=== PATIENT | male | born 1995 | race American Indian/Alaskan Native ===

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

== ENCOUNTER 2017-09-12 12:30 | Emergency (ER) | payer BC ==
[2017-09-12 12:30] VITALS: BMI 38.7
[2017-09-12] MEDS ORDERED: Sodium Chloride 0.9% 1,000 ML IV ONE (13:31)
--- NOTE | 2017-09-12 13:31 | C.PDOC ---
History Of Present Illness 22 Y/O MALE PRESENTS TO ED FOR EVALUATION OF POSSIBLE RECUR GERD EPIG PAIN X 4 DAYS. PS DX GERD, POSSIBLE PUD 2017 @ [facility] [place]. DENIES PRIOR ENDOSCOPY. WAS PREVIOUSLY ON "GI MEDS" BUT ADVISED TO STOP LAST YEAR. PATIENT STATES CURRENT PAIN SIM TO PRIOR BUT MORE INTENSE. LOCALIZED WAX WANE WORSE W SPICY AND FRIED FOODS. +NV. PSH NEG. DENIES OTHER ASSOC SX EXAM MILD DIST NONTOXIC HEENT MMM ANICTERIC ABD +EPIG TEND OBESE SOFT NO R/G REMAINDER NEG Time Seen by Provider: 09/12/17 13:03 Chief Complaint (Nursing): Abdominal Pain History Per: Patient History/Exam Limitations: no limitations Onset/Duration Of Symptoms: Days Current Symptoms Are (Timing): Still Present Context: Food Location Of Pain/Discomfort: Epigastric Radiation Of Pain To:: None Past Medical History Reviewed: Historical Data, Nursing Documentation, Vital Signs Vital Signs: Last Vital Signs Temp 100.7 F H 09/12/17 18:28 Pulse 101 H 09/12/17 18:28 Resp 18 09/12/17 18:28 BP 106/69 09/12/17 18:28 Pulse Ox 98 09/12/17 18:28 - Medical History PMH: No Chronic Diseases Surgical History: No Surg Hx Family History: States: No Known Family Hx - Social History Hx Tobacco Use: No Hx Alcohol Use: No Hx Substance Use: No - Immunization History Hx Tetanus Toxoid Vaccination: Yes Hx Influenza Vaccination: No Hx Pneumococcal Vaccination: No Review Of Systems Constitutional: Negative for: Fever, Chills Gastrointestinal: Positive for: Nausea, Vomiting, Abdominal Pain. Negative for : Diarrhea Genitourinary: Negative for: Dysuria Musculoskeletal: Negative for: Back Pain Skin: Negative for: Rash Physical Exam - Physical Exam Appears: Non-toxic, Other (In mild distress) Skin: Warm, Dry, No Rash Head: Atraumatic, Normacephalic Eye(s): bilateral: Normal Inspection Oral Mucosa: Moist Neck: Normal ROM, Supple Cardiovascular: Rhythm Regular Respiratory: Normal Breath Sounds, No Rales, No Rhonchi, No Wheezing Gastrointestinal/Abdominal: Soft, Tenderness (Epigastric), No Guarding, No Rebound, Other (Obese ) Back: No CVA Tenderness, No Paraspinal Tenderness Neurological/Psych: Oriented x3, Normal Speech, Normal Cognition ED Course And Treatment - Laboratory Results Result Diagrams: 09/12/17 18:29 09/12/17 13:54 O2 Sat by Pulse Oximetry: 99 (RA) Pulse Ox Interpretation: Normal Progress - Re-Evaluation Re-evaluation Note: 09/12/17 15:17 PS FEELS BETTER. APPEARS IMPROVED FROM PRIOR. TOLERATING PO WO DIFF 09/12/17 15:30 +FEVER. PS FELT "HOT AND CHILLS" THIS WEEK, NO MEASURED TEMP. CXR NEG. WILL CT 09/12/17 18:54 CBC IMPROVED. CO NEW ONSET DIARRHEA. APPEARS COMFORTABLE NONTOXIC - Data Reviewed Data Reviewed: Lab, Diagnostic imaging, Old records Disposition Counseled Patient/Family Regarding: Studies Performed, Diagnosis, Need For Followup, Rx Given - Disposition Referrals: YOUR,PMD [Other] Disposition: HOME/ ROUTINE Disposition Time: 18:54 Condition: IMPROVED Prescriptions: Famotidine [Pepcid AC] 10 mg PO QN #30 tablet Omeprazole Magnesium [Prilosec Otc] 20 mg PO QN #30 tablet. Sucralfate [Carafate] 1 gm PO QID #12 tab Instructions: Acute Abdomen (Belly Pain), Adult (DC), Viral Gastroenteritis, Adult (DC) Forms: [employer] (Indonesian) - Clinical Impression Clinical Impression: Abdominal pain, Diarrhea - Scribe Statement The provider has reviewed the documentation as recorded by the Sheebaibkong Stokes All medical record entries made by the Sheebaibkong were at my direction and personally dictated by me. I have reviewed the chart and agree that the record accurately reflects my personal performance of the history, physical exam, medical decision making, and the department course for this patient. I have also personally directed, reviewed, and agree with the discharge instructions and disposition.
[2017-09-12] MEDS ORDERED: Belladonna-Phenobarbital PO STA (13:32)
[2017-09-12] MEDS ORDERED: Sodium Chloride 0.9% 1,000 ML ONE (13:39)
[2017-09-12] MEDS ORDERED: Belladonna-Phenobarbital ONE (13:40)
[2017-09-12 14:01] LABS: BASO % 0.1 % (0.0-2.0); EOS % 0.7 % (0.0-4.0); HEMOGLOBIN 14.3 g/dL (12.0-18.0); LYMPH # 0.5 K/uL (1.0-4.3); LYMPH % 8.3 % (20.0-40.0); MEAN CELL VOLUME 85.7 fL (80.0-94.0); MEAN CORPUSCULAR HEMOGLOBIN 29.3 pg (27.0-31.0); MEAN CORPUSCULAR HGB CONC 34.3 g/dL (33.0-37.0); MEAN PLATELET VOLUME 8.7 fL (7.2-11.7); MONO # 0.8 K/uL (0.0-0.8); NEUT # 5.1 K/uL (1.8-7.0); NEUT % 78.9 % (50.0-75.0); NRBC % 0.1 % (0.0-2.0); PLATELET COUNT 209 K/uL (130-400); RBC 4.87 Mil/uL (4.40-5.90); RED CELL DISTRIBUTION WIDTH 14.2 % (11.5-14.5); WHITE BLOOD COUNT 6.4 K/uL (4.8-10.8)
[2017-09-12 14:16] LABS: ALBUMIN 4.6 g/dL (3.5-5.0); ALT/SGPT 14 U/L (21-72); AST/SGOT 46 U/L (17-59); BLOOD UREA NITROGEN 10 mg/dL (9-20); CALCIUM 9.7 mg/dl (8.6-10.4); GFR AFRICAN-AMERICAN > 60; GFR NON-AFRICAN AMERICAN > 60; LIPASE 75 U/L (23-300)
--- NOTE | 2017-09-12 14:23 | US ---
HISTORY: abd pain COMPARISON: None. TECHNIQUE: Sonographic evaluation of the right upper quadrant of the abdomen. FINDINGS: LIVER: Measures 15.8 cm in length. Normal echogenicity of the liver parenchyma. No mass. No intrahepatic bile duct dilatation. GALLBLADDER: Unremarkable. No gallstones. COMMON BILE DUCT: Measures 4 mm. No stones. No dilatation. PANCREAS: Not well-visualized RIGHT KIDNEY: Measures 10.8 x 4.7 x 4.9 cm in length. Normal echogenicity. No calculus, mass, or hydronephrosis. AORTA: No aneurysmal dilatation. IVC: Unremarkable. OTHER FINDINGS: None . IMPRESSION: Unremarkable right upper quadrant ultrasound.
[2017-09-12 14:37] LABS: BANDS 8 % (0-2); BASOPHIL 1 % (0-2); LYMPHOCYTE 8 % (20-40); MONOCYTE 9 % (0-10); NEUTROPHIL 72 % (50-75); REACTIVE LYMPHOCYTES 2 % (0-0); TOTAL CELLS COUNTED 100
[2017-09-12 14:38] LABS: PLATELET ESTIMATE NORMAL (NORMAL)
[2017-09-12 14:58] LABS: SQUAMOUS EPITHIAL < 1 /hpf (0-5); URINE BILIRUBIN NEGATIVE (NEGATIVE); URINE BLOOD NEGATIVE (NEGATIVE); URINE CLARITY Clear (Clear); URINE COLOR Yellow (YELLOW); URINE GLUCOSE (UA) NORMAL (Normal); URINE LEUKOCYTE ESTERASE NEG Leu/uL (Negative); URINE PROTEIN NEGATIVE (NEGATIVE); URINE UROBILINOGEN NORMAL mg/dL (0.2-1.0)
[2017-09-12] MEDS ORDERED: Iohexol 300 100 ML IJ ONE (17:22)
--- NOTE | 2017-09-12 18:05 | CT ---
PROCEDURE: CT Abdomen and Pelvis with contrast HISTORY: ABD PAIN FEVER COMPARISON: None. TECHNIQUE: Contrast dose: 100 mL Omnipaque 300 Radiation dose: Total exam DLP = 1300.2 mGy-cm. This CT exam was performed using one or more of the following dose reduction techniques: Automated exposure control, adjustment of the mA and/or kV according to patient size, and/or use of iterative reconstruction technique. FINDINGS: LOWER THORAX: Unremarkable. LIVER: Unremarkable. No gross lesion or ductal dilatation. GALLBLADDER AND BILE DUCTS: Unremarkable. PANCREAS: Unremarkable. No gross lesion or ductal dilatation. SPLEEN: Unremarkable. ADRENALS: Unremarkable. No mass. KIDNEYS AND URETERS: Unremarkable. No hydronephrosis. No solid mass. VASCULATURE: Unremarkable. No aortic aneurysm. BOWEL: Unremarkable. No obstruction. No gross mural thickening. APPENDIX: Normal appendix. PERITONEUM: Fat containing umbilical hernia. No free fluid. No free air. LYMPH NODES: Unremarkable. No enlarged lymph nodes. BLADDER: Unremarkable. REPRODUCTIVE: Unremarkable. BONES: No acute fracture. OTHER FINDINGS: None. IMPRESSION: Unremarkable contrast enhanced CT of the abdomen and pelvis.
[2017-09-12 18:29] VITALS: BP 106/69; PULSE 101; RESP 18; TEMP 100.7
[2017-09-12 18:34] LABS: BASO % 0.2 % (0.0-2.0); EOS % 0.4 % (0.0-4.0); HEMOGLOBIN 13.2 g/dL (12.0-18.0); LYMPH # 0.6 K/uL (1.0-4.3); LYMPH % 12.8 % (20.0-40.0); MEAN CELL VOLUME 85.2 fL (80.0-94.0); MEAN CORPUSCULAR HEMOGLOBIN 28.9 pg (27.0-31.0); MEAN CORPUSCULAR HGB CONC 33.9 g/dL (33.0-37.0); MEAN PLATELET VOLUME 8.7 fL (7.2-11.7); MONO # 0.3 K/uL (0.0-0.8); MONO % 5.9 % (0.0-10.0); NEUT # 3.7 K/uL (1.8-7.0); NEUT % 80.7 % (50.0-75.0); RBC 4.58 Mil/uL (4.40-5.90); RED CELL DISTRIBUTION WIDTH 14.5 % (11.5-14.5); WHITE BLOOD COUNT 4.6 K/uL (4.8-10.8)
[2017-09-12 18:55] VITALS: O2SAT 99
== END 2017-09-12 19:10 | disposition home or self-care (01) ==
LOC: C.ER 12:30
DX: R10.9 Unspecified abdominal pain (principal); R19.7 Diarrhea, unspecified
CPT/HCPCS: 71046; 74177; 76705; 80053; 81001; 83690; 85025; 96361; 96374; 96375; 99285; C9113; J2270; J7030; Q9967

== ENCOUNTER 2017-10-03 15:31 | Emergency (ER) | payer BC, OTHER ==
[2017-10-03 15:32] VITALS: BMI 38.7
[2017-10-03 16:09] LABS: BASO % 0.5 % (0.0-2.0); EOS % 0.9 % (0.0-4.0); HEMOGLOBIN 14.4 g/dL (12.0-18.0); LYMPH # 1.3 K/uL (1.0-4.3); LYMPH % 38.7 % (20.0-40.0); MEAN CORPUSCULAR HEMOGLOBIN 29.2 pg (27.0-31.0); MEAN CORPUSCULAR HGB CONC 33.9 g/dL (33.0-37.0); MEAN PLATELET VOLUME 8.4 fL (7.2-11.7); MONO # 0.3 K/uL (0.0-0.8); NEUT # 1.6 K/uL (1.8-7.0); NEUT % 49.9 % (50.0-75.0); NRBC % 0.1 % (0.0-2.0); RBC 4.93 Mil/uL (4.40-5.90); RED CELL DISTRIBUTION WIDTH 15.1 % (11.5-14.5); WHITE BLOOD COUNT 3.3 K/uL (4.8-10.8)
[2017-10-03 16:21] LABS: ALB/GLOB RATIO 1.2 (1.0-2.1); ALBUMIN 4.8 g/dL (3.5-5.0); ALT/SGPT 40 U/L (21-72); AST/SGOT 54 U/L (17-59); BLOOD UREA NITROGEN 11 mg/dL (9-20); CALCIUM 9.7 mg/dl (8.6-10.4); GFR AFRICAN-AMERICAN > 60; GFR NON-AFRICAN AMERICAN > 60
--- NOTE | 2017-10-03 16:22 | RAD ---
PROCEDURE: CHEST RADIOGRAPH, 1 VIEW HISTORY: chest pain COMPARISON: 09/12/2017 FINDINGS: LUNGS: Clear. PLEURA: No pneumothorax or pleural fluid seen. CARDIOVASCULAR: Normal. OSSEOUS STRUCTURES: No significant abnormalities. VISUALIZED UPPER ABDOMEN: Normal. OTHER FINDINGS: None. IMPRESSION: No active disease.
[2017-10-03] MEDS ORDERED: Aluminum Hydroxide/Magnesium Hydroxide Susp (30 mL) PO STA (16:34)
[2017-10-03] MEDS ORDERED: Aluminum Hydroxide/Magnesium Hydroxide Susp (30 mL) ONE (16:50)
[2017-10-03 17:26] VITALS: BP 112/71; PULSE 85; RESP 18; TEMP 97.7; O2SAT 97
--- NOTE | 2017-10-03 18:55 | C.PDOC ---
History Of Present Illness 22-year-old male, presents to the emergency department with complaints of epigastric/chest pain that started several days ago. Patient denies any shortness of breath, cough or pain. He notes a burning sensation, which is non- radiating. No other complaints at this time. Chief Complaint (Nursing): Chest Pain History Per: Patient History/Exam Limitations: no limitations Current Symptoms Are (Timing): Still Present Severity: Moderate Past Medical History Reviewed: Historical Data, Nursing Documentation, Vital Signs Vital Signs: Last Vital Signs Temp 97.7 F 10/03/17 17:25 Pulse 85 10/03/17 17:25 Resp 18 10/03/17 17:25 BP 112/71 10/03/17 17:25 Pulse Ox 97 10/03/17 18:57 - Medical History PMH: Anxiety, Gall Bladder Disease, Hypercholesterolemia Family History: States: No Known Family Hx - Social History Hx Tobacco Use: No Hx Alcohol Use: No Hx Substance Use: No - Immunization History Hx Tetanus Toxoid Vaccination: (unk) Hx Influenza Vaccination: No Hx Pneumococcal Vaccination: No Review Of Systems Constitutional: Negative for: Fever, Chills Cardiovascular: Positive for: Chest Pain. Negative for: Palpitations Respiratory: Negative for: Cough, Shortness of Breath Gastrointestinal: Positive for: Abdominal Pain. Negative for: Nausea, Vomiting Musculoskeletal: Negative for: Back Pain Skin: Negative for: Rash Neurological: Negative for: Weakness, Numbness, Headache, Dizziness Physical Exam - Physical Exam Appears: Non-toxic, No Acute Distress Skin: Normal Color, Warm, Dry Head: Atraumatic, Normacephalic Eye(s): bilateral: Normal Inspection, PERRL, EOMI Nose: Normal Oral Mucosa: Moist Lips: Normal Appearing Neck: Normal ROM Cardiovascular: Rhythm Regular, No Murmur Respiratory: Normal Breath Sounds, No Accessory Muscle Use Gastrointestinal/Abdominal: Soft, No Tenderness, No Guarding, No Rebound Extremity: Normal ROM, No Deformity, No Swelling Neurological/Psych: Oriented x3, Normal Speech ED Course And Treatment - Laboratory Results Result Diagrams: 10/03/17 16:05 10/03/17 16:05 O2 Sat by Pulse Oximetry: 97 (RA) Pulse Ox Interpretation: Normal Disposition - Disposition Referrals: Jessica Odell MD [Staff Provider] - Disposition: HOME/ ROUTINE Disposition Time: 16:45 Condition: IMPROVED Additional Instructions: DELMY WELCH, thank you for letting us take care of you today. Your provider was Ramón Estrada DO. The emergency medical care you received today was directed at your acute symptoms. If you were prescribed any medication, please fill it and take as directed. It may take several days for your symptoms to resolve. Return to the Emergency Department if your symptoms worsen, do not improve, or if you have any other problems. Please contact your doctor or call one of the physicians/clinics you have been referred to that are listed on the Patient Visit Information form that is included in your discharge packet. Bring any paperwork you were given at discharge with you along with any medications you are taking to your follow up visit. Our treatment cannot replace ongoing medical care by a primary care provider outside of the emergency department. Thank you for allowing the [facility] team to be part of your care today. Follow up with your primary doctor in 3-4 days for re-evaluation and further management. Prescriptions: Ranitidine HCl [Zantac] 150 mg PO BID #20 tablet Instructions: Gastritis (DC) Forms: [employer] (Lao) - Clinical Impression Clinical Impression: Gastritis - Scribe Statement The provider has reviewed the documentation as recorded by the Scribe (Humberto Hernandez) All medical record entries made by the Scribe were at my direction and personally dictated by me. I have reviewed the chart and agree that the record accurately reflects my personal performance of the history, physical exam, medical decision making, and the department course for this patient. I have also personally directed, reviewed, and agree with the discharge instructions and disposition.
--- NOTE | 2017-10-06 18:30 | CARD ---
APPROVED REPORT EKG Measurement Heart [id number] <Conclusion> Normal sinus rhythm Nonspecific ST and T wave abnormality Abnormal ECG
== END 2017-10-03 17:27 | disposition home or self-care (01) ==
LOC: C.ER 15:31
DX: K29.70 Gastritis, unspecified, without bleeding (principal)

== ENCOUNTER 2017-10-06 04:01 | Emergency (ER) | payer BC, OTHER ==
[2017-10-06 04:01] VITALS: BMI 38.7
[2017-10-06 04:31] VITALS: RESP 16
[2017-10-06] MEDS ORDERED: Naproxen 550 mg Tab PO STA ×2 (05:10→05:26)
--- NOTE | 2017-10-06 05:10 | C.PDOC ---
History Of Present Illness 22 year old male with PMhx of anxiety and migraines presents to the ED for evaluation . Patient reports that while he was sleeping he felt like" I was passing out while sleeping" and my body was trembling. Patient states he feels his anxiety is acting up, used to be on meds but was taken off them by his PMD. Patient is currently c/o headache which he states is similar to previous migraine episodes. Patient took baby aspirin with no relief. Patient denies fever, chills, nausea, vomit, diarrhea, rash. Time Seen by Provider: 10/06/17 04:39 Chief Complaint (Nursing): Anxiety History Per: Patient History/Exam Limitations: no limitations Onset/Duration Of Symptoms: Hrs Current Symptoms Are (Timing): Still Present Suicide/Self Injury Attempted (Context): None Modifying Factor(s): None Associated Symptoms: Anxiety. denies: Depression, Suicidal Thoughts, Suicidal Plan Recent travel outside of the [place]: No Additional History Per: Patient Past Medical History Reviewed: Historical Data, Nursing Documentation, Vital Signs Vital Signs: Last Vital Signs Temp 99.2 F 10/06/17 04:18 Pulse 70 10/06/17 04:18 Resp 16 10/06/17 04:18 BP Pulse Ox 98 10/06/17 05:41 - Medical History PMH: Anxiety, Gall Bladder Disease, Hypercholesterolemia, Migraine Surgical History: No Surg Hx Family History: States: Unknown Family Hx - Social History Hx Tobacco Use: No Hx Alcohol Use: No Hx Substance Use: No - Immunization History Hx Tetanus Toxoid Vaccination: (unk) Hx Influenza Vaccination: No Hx Pneumococcal Vaccination: No Review Of Systems Constitutional: Negative for: Fever, Chills Cardiovascular: Negative for: Chest Pain, Palpitations Respiratory: Negative for: Cough Gastrointestinal: Negative for: Nausea, Vomiting, Abdominal Pain Neurological: Positive for: Headache. Negative for: Weakness, Numbness Psych: Positive for: Anxiety Physical Exam - Physical Exam Appears: Non-toxic, No Acute Distress, Other (anxious) Skin: Normal Color, Warm, Dry Head: Atraumatic, Normacephalic Eye(s): bilateral: Normal Inspection, PERRL, Other (no conjunctival pallor ) Oral Mucosa: Moist Neck: Normal ROM, Supple Chest: Symmetrical Cardiovascular: Rhythm Regular Respiratory: Normal Breath Sounds, No Wheezing Gastrointestinal/Abdominal: Normal Exam Extremity: Normal ROM, No Tenderness, No Swelling Neurological/Psych: Oriented x3, Normal Speech, Normal Motor, Normal Sensation Gait: Steady ED Course And Treatment O2 Sat by Pulse Oximetry: 98 (ON RA) Pulse Ox Interpretation: Normal Progress Note: Plan: - Naproxen 500 mg PO. On reassessment, patient is resting comfortably, is tolerating PO, and pain has improved. Patient has no neurologic deficit, photophobia, rash, fever, or nuchal rigidity. Patient was instructed to follow up with physician/clinic in 1-2 days. Disposition Counseled Patient/Family Regarding: Diagnosis, Need For Followup, Rx Given - Disposition Disposition: HOME/ ROUTINE Disposition Time: 05:39 Condition: STABLE Additional Instructions: Please follow up with PMD Continue naproxen for pain Return to ER if worse Prescriptions: Naproxen [Naprosyn] 1 tab PO BID PRN #20 tab PRN Reason: Pain Instructions: Migraine Headache (DC), Anxiety, Adult (DC) Forms: [employer] (Moroccan) - Clinical Impression Clinical Impression: Anxiety, Migraine - PA / INSIDE SALES ACCOUNT MANAGER / Resident Statement MD/DO has reviewed & agrees with the documentation as recorded. - Scribe Statement The provider has reviewed the documentation as recorded by the Scribe Basim Kumar All medical record entries made by the Scribe were at my direction and personally dictated by me. I have reviewed the chart and agree that the record accurately reflects my personal performance of the history, physical exam, medical decision making, and the department course for this patient. I have also personally directed, reviewed, and agree with the discharge instructions and disposition.
[2017-10-06] MEDS ORDERED: Naproxen 275 mg Tab PO ONE (05:24)
[2017-10-06 05:49] VITALS: BP 112/71; PULSE 63; TEMP 98.4; O2SAT 100
== END 2017-10-06 05:50 | disposition home or self-care (01) ==
LOC: C.ER 04:01
DX: G43.909 Migraine, unspecified, not intractable, without status migrainosus (principal); F41.9 Anxiety disorder, unspecified; E78.00 Pure hypercholesterolemia, unspecified

== ENCOUNTER 2017-11-23 20:28 | Emergency (ER) | payer BC, OTHER ==
[2017-11-23 20:28] VITALS: BMI 38.7
[2017-11-23 20:34] VITALS: O2SAT 100
--- NOTE | 2017-11-23 21:53 | C.PDOC ---
History Of Present Illness 22 y/o male, with Hx of anxiety, BIBA to the ER for evaluation after experiencing palpitations, tingling to the lower extremities and increased anxiety 2-3 hours prior to arrival. The patient reports being unable to relax after a shower, and was breathing fast which prompted ED visit. He admits to previously being prescribed medication, which he does not recall the name of, for anxiety but was discontinued by PCP. The patient denies any chest pain, dizziness, weakness of any extremities or shortness of breath. (Suri Serrano) History Per: Patient History/Exam Limitations: no limitations Onset/Duration Of Symptoms: Hrs Current Symptoms Are (Timing): Gone Modifying Factor(s): None Associated Symptoms: Anxiety Recent travel outside of the [place]: No Time Seen by Provider: 11/23/17 20:47 Chief Complaint (Nursing): Anxiety Past Medical History Reviewed: Historical Data, Nursing Documentation, Vital Signs - Medical History PMH: Anxiety, Gall Bladder Disease, Hypercholesterolemia, Migraine Surgical History: No Surg Hx Family History: States: Unknown Family Hx - Social History Hx Tobacco Use: No Hx Alcohol Use: No Hx Substance Use: No - Immunization History Hx Tetanus Toxoid Vaccination: (unk) Hx Influenza Vaccination: No Hx Pneumococcal Vaccination: No Vital Signs: Last Vital Signs Temp 99.3 F 11/23/17 22:00 Pulse 99 H 11/23/17 22:00 Resp 15 11/23/17 22:00 BP 139/87 11/23/17 22:00 Pulse Ox 100 11/24/17 01:53 Review Of Systems Except As Marked, All Systems Reviewed And Found Negative. Constitutional: Negative for: Fever Cardiovascular: Positive for: Palpitations. Negative for: Chest Pain Respiratory: Negative for: Shortness of Breath Neurological: Positive for: Other (tingling to lower extremities ). Negative for: Weakness, Dizziness Psych: Positive for: Anxiety Physical Exam - Physical Exam Appears: No Acute Distress Head: Atraumatic, Normacephalic Eye(s): bilateral: PERRL, EOMI Chest: Symmetrical Cardiovascular: Rhythm Regular, No Murmur Respiratory: Normal Breath Sounds, No Rales, No Rhonchi, No Wheezing Extremity: No Tenderness Extremity: Bilateral: Atraumatic, Normal Color And Temperature, Normal ROM Pulses: Left Dorsalis Pedis: Normal, Right Dorsalis Pedis: Normal Neurological/Psych: Oriented x3, Normal Speech, Normal Sensation ED Course And Treatment ECG: Interpreted By Me ECG Rhythm: Sinus Rhythm (106 bpm (upon arrival) ) ECG Interpretation: Normal Interpretation Of ECG: sinus tachycardia O2 Sat by Pulse Oximetry: 100 (RA) Pulse Ox Interpretation: Normal Progress Note: On reeval patient is stable and resting comfortably. Pulse, heart rate was 99 bpm. The patient was advised to follow up with PCP. Disposition Counseled Patient/Family Regarding: Diagnosis, Need For Followup - Disposition Disposition Time: 21:51 - Disposition Referrals: Jessica Odell MD [Staff Provider] - Disposition: HOME/ ROUTINE Condition: STABLE Additional Instructions: Please follow up with pMD for further evaluation Return to ER if worse Instructions: Anxiety, Adult (DC) Forms: [employer] (Slovenian) - Clinical Impression Clinical Impression: Anxiety - PA / CORPORATE WEBMASTER / Resident Statement MD/DO has reviewed & agrees with the documentation as recorded. - Scribe Statement The provider has reviewed the documentation as recorded by the Scribe (Sherry Liriano) - Scribe Statement All medical record entries made by the Scribe were at my direction and personally dictated by me. I have reviewed the chart and agree that the record accurately reflects my personal performance of the history, physical exam, medical decision making, and the department course for this patient. I have also personally directed, reviewed, and agree with the discharge instructions and disposition. (Suri Serrano)
[2017-11-23 22:01] VITALS: BP 139/87; PULSE 99; RESP 15; TEMP 99.3
--- NOTE | 2017-11-24 23:37 | CARD ---
APPROVED REPORT Date of service: 11/23/2017 EKG Measurement Heart [id number] <Conclusion> Sinus tachycardia Nonspecific T wave abnormality Abnormal ECG
== END 2017-11-23 22:00 | disposition home or self-care (01) ==
LOC: C.ER 20:28
DX: F41.9 Anxiety disorder, unspecified (principal)

== ENCOUNTER 2018-01-09 17:23 | Emergency (ER) | payer BC, OTHER ==
[2018-01-09 17:24] VITALS: BMI 38.7
[2018-01-09 17:49] VITALS: BP 129/84; PULSE 79; RESP 16; TEMP 98.9; O2SAT 97
--- NOTE | 2018-01-09 18:17 | C.PDOC ---
History Of Present Illness 22 year old male presents to the ED for evaluation after finding scant blood while wiping after using the bathroom this morning. Patient recently underwent a sleep study but did not schedule a follow-up appointment. Patient denies fever, chills, abdominal pain or anal penetration. Time Seen by Provider: 01/09/18 18:04 Chief Complaint (Nursing): Abdominal Pain History Per: Patient History/Exam Limitations: no limitations Onset/Duration Of Symptoms: Hrs Current Symptoms Are (Timing): Still Present Number Of Bleeding Episodes: One Associated Symptoms: denies: Nausea, Vomiting Additional History Per: Patient Past Medical History Reviewed: Historical Data, Nursing Documentation, Vital Signs Vital Signs: Last Vital Signs Temp 98.9 F 01/09/18 17:47 Pulse 79 01/09/18 17:47 Resp 16 01/09/18 17:47 BP 129/84 01/09/18 17:47 Pulse Ox 97 01/09/18 17:47 - Medical History PMH: Anxiety, Gall Bladder Disease (Pt denies), Hypercholesterolemia, Migraine Surgical History: Endoscopy Family History: States: Unknown Family Hx - Social History Hx Tobacco Use: No Hx Alcohol Use: No Hx Substance Use: No - Immunization History Hx Tetanus Toxoid Vaccination: No Hx Influenza Vaccination: No Hx Pneumococcal Vaccination: No Review Of Systems Constitutional: Negative for: Fever, Chills Gastrointestinal: Positive for: Other (blood noted after wiping ) Physical Exam - Physical Exam Appears: Non-toxic, No Acute Distress, Other (obese black male ) Skin: Normal Color, Warm, Dry Head: Atraumatic, Normacephalic Eye(s): bilateral: Normal Inspection Oral Mucosa: Moist Neck: Supple Chest: Symmetrical, No Deformity, No Tenderness Cardiovascular: Rhythm Regular, No Murmur Respiratory: Normal Breath Sounds, No Rales, No Rhonchi, No Wheezing Gastrointestinal/Abdominal: Soft, No Tenderness, No Guarding, No Rebound Rectal: Hemorrhoids (small, soft, nonbleeding, external, at 7 o'clock position ) Extremity: Normal ROM, Capillary Refill (less than 2 seconds ) Neurological/Psych: Oriented x3, Normal Speech, Normal Cognition ED Course And Treatment O2 Sat by Pulse Oximetry: 97 (on RA ) Pulse Ox Interpretation: Normal Medical Decision Making Medical Decision Making: small non-bleeding external hemorroid 7 o'clock position no pain diet changes CHAGO Recent sleep study needs f/u for sleep mask w Dr. Myles Disposition Doctor Will See Patient In The: Office Counseled Patient/Family Regarding: Studies Performed, Diagnosis - Disposition Referrals: [facility] [Outside] [facility] [place] [Outside] [facility] [Outside] Vega Myles MD [Staff Provider] - Jessica Odell MD [Staff Provider] - Disposition: HOME/ ROUTINE Disposition Time: 18:17 Condition: GOOD Additional Instructions: diet changes for hemorroids Sleep Apnea; Call Dr. Myles's office on Friday to make a follow-up appointment regarding your sleep study done in December 2017 Instructions: Hemorrhoids, Obstructive Sleep Apnea, Adult (DC) Forms: [employer] (Tristanian) - Clinical Impression Clinical Impression: Bleeding external hemorrhoids - Scribe Statement The provider has reviewed the documentation as recorded by the Scribe (Dedra Odell) Provider Attestation: All medical record entries made by the Scribe were at my direction and personally dictated by me. I have reviewed the chart and agree that the record accurately reflects my personal performance of the history, physical exam, medical decision making, and the department course for this patient. I have also personally directed, reviewed, and agree with the discharge instructions and disposition.
== END 2018-01-09 18:29 | disposition home or self-care (01) ==
LOC: C.ER 17:23
DX: K64.4 Residual hemorrhoidal skin tags (principal)

== ENCOUNTER 2018-05-12 16:17 | Emergency (ER) | payer BC, MEDICAID, OTHER ==
[2018-05-12 16:17] VITALS: BMI 38.7
[2018-05-12 16:23] VITALS: BP 146/82; PULSE 95; RESP 18; TEMP 99.2; O2SAT 100
--- NOTE | 2018-05-12 17:07 | C.PDOC ---
Time Seen by Provider: 05/12/18 16:36 Chief Complaint (Nursing): Palpitations History Per: Patient Onset/Duration Of Symptoms: Hrs Current Symptoms Are (Timing): Better Quality Of Symptoms: Other (Feels "jittery") Severity: Moderate Exacerbating Factor(s): Pos: Other Additional History Per: Prior Records Past Medical History Reviewed: Historical Data, Nursing Documentation, Vital Signs Vital Signs: Last Vital Signs Temp 99.2 F 05/12/18 16:22 Pulse 95 H 05/12/18 16:22 Resp 18 05/12/18 16:22 BP 146/82 05/12/18 16:22 Pulse Ox 100 05/12/18 16:22 - Medical History PMH: Anxiety, Gall Bladder Disease (Pt denies), Hypercholesterolemia, Migraine Surgical History: Endoscopy Family History: States: Unknown Family Hx - Social History Hx Tobacco Use: No Hx Alcohol Use: Yes Hx Substance Use: No - Immunization History Hx Tetanus Toxoid Vaccination: No Hx Influenza Vaccination: No Hx Pneumococcal Vaccination: No Review Of Systems Except As Marked, All Systems Reviewed And Found Negative. Constitutional: Negative for: Fever Eyes: Negative for: Vision Change Cardiovascular: Negative for: Chest Pain Respiratory: Negative for: Shortness of Breath Gastrointestinal: Positive for: Diarrhea (after eating [employer] today). Neg ative for: Vomiting, Hematochezia Genitourinary: Negative for: Dysuria Musculoskeletal: Negative for: Neck Pain Skin: Negative for: Rash Neurological: Negative for: Weakness, Numbness, Seizures, Altered Mental Status Physical Exam - Physical Exam Appears: Non-toxic, No Acute Distress Skin: Normal Color, Warm, Dry, No Rash Head: Atraumatic, Normacephalic Eye(s): bilateral: Normal Inspection, PERRL, EOMI Oral Mucosa: Moist Neck: Normal ROM, Supple Cardiovascular: Rhythm Regular Respiratory: Normal Breath Sounds, No Accessory Muscle Use Gastrointestinal/Abdominal: Soft, No Tenderness Extremity: Normal ROM, No Pedal Edema, No Calf Tenderness Neurological/Psych: Oriented x3, Normal Speech, Normal Cognition, Normal Cranial Nerves, No Cerebellar Signs, Normal Motor, Normal Sensation ED Course And Treatment - Laboratory Results Interpretation Of Abnormal: FS Glucose WNL ECG: Interpreted By Me, Viewed By Me ECG Rhythm: Sinus Rhythm ECG Interpretation: No Acute Changes Rate From EC O2 Sat by Pulse Oximetry: 100 Pulse Ox Interpretation: Normal Reassessment Condition: Improved Disposition Counseled Patient/Family Regarding: Studies Performed, Diagnosis, Need For Followup - Disposition Referrals: Jessica Odell MD [Staff Provider] - Disposition: HOME/ ROUTINE Disposition Time: 17:08 Condition: STABLE Additional Instructions: Follow up with your doctor for further evaluation. Return to the ER if you develop worsening of symptoms or if you have any other concerns. Instructions: Palpitations (DC) Forms: [employer] (Romansh) - Clinical Impression Clinical Impression: Palpitations
--- NOTE | 2018-05-14 16:00 | CARD ---
APPROVED REPORT Date of service: 05/12/2018 EKG Measurement Heart [id number] <Conclusion> Normal sinus rhythm Normal ECG
== END 2018-05-12 17:18 | disposition home or self-care (01) ==
LOC: C.ER 16:17
DX: R00.2 Palpitations (principal); E78.00 Pure hypercholesterolemia, unspecified

== ENCOUNTER 2018-08-09 02:54 | Emergency (ER) | payer BC ==
[2018-08-09 03:07] VITALS: BMI 34.2
[2018-08-09 03:19] VITALS: BP 113/77; PULSE 77; RESP 20; TEMP 98.8; O2SAT 96
--- NOTE | 2018-08-09 03:22 | C.PDOC ---
History Of Present Illness 23-year-old male presents to the ED for evaluation after having an anxiety attack [place] with questionable syncope earlier tonight. Patient claims he syncopized where he arrived into [place]. Patient also reports mild left ankle discomfort, questionably related to the syncope episode. Patient denies chest pain, shortness of breath, nausea, vomiting. Time Seen by Provider: 08/09/18 03:16 Chief Complaint (Nursing): Anxiety History Per: Patient History/Exam Limitations: no limitations Onset/Duration Of Symptoms: Hrs Current Symptoms Are (Timing): Still Present Associated Symptoms: Anxiety Additional History Per: Patient Past Medical History Reviewed: Historical Data, Nursing Documentation, Vital Signs Vital Signs: Last Vital Signs Temp 98.8 F 08/09/18 03:07 Pulse 77 08/09/18 03:07 Resp 20 08/09/18 03:07 BP 113/77 08/09/18 03:07 Pulse Ox 96 08/09/18 03:07 Primary Care Provider: Non [facility] Provider, - Medical History PMH: Anxiety, Gall Bladder Disease (Pt denies), Hypercholesterolemia, Migraine Surgical History: Endoscopy Family History: States: Unknown Family Hx - Social History Hx Tobacco Use: No Hx Alcohol Use: Yes Hx Substance Use: No - Immunization History Hx Tetanus Toxoid Vaccination: No Hx Influenza Vaccination: No Hx Pneumococcal Vaccination: No Review Of Systems Cardiovascular: Negative for: Chest Pain Respiratory: Negative for: Shortness of Breath Gastrointestinal: Negative for: Nausea, Vomiting Musculoskeletal: Positive for: Other (left ankle pain ) Psych: Positive for: Anxiety Physical Exam - Physical Exam Appears: Non-toxic, No Acute Distress Skin: Normal Color, Warm, Dry Head: Atraumatic, Normacephalic Eye(s): bilateral: Normal Inspection Oral Mucosa: Moist Neck: Supple Chest: Symmetrical, No Deformity, No Tenderness Cardiovascular: Rhythm Regular, No Murmur Respiratory: Normal Breath Sounds, No Rales, No Rhonchi, No Wheezing Extremity: Normal ROM (left ankle ), No Tenderness, Capillary Refill (less than 2 seconds ), No Deformity, No Swelling Neurological/Psych: Oriented x3, Normal Speech, Normal Cognition ED Course And Treatment O2 Sat by Pulse Oximetry: 96 (on RA) Pulse Ox Interpretation: Normal Medical Decision Making Medical Decision Making: typical panic attack resolved [employer] ? mild L ankle sprain during syncope normal L ankle exam defer x-rays with informed consent Disposition Doctor Will See Patient In The: Office Counseled Patient/Family Regarding: Studies Performed, Diagnosis - Disposition [facility]] [facility] [Outside] [facility] [Outside] [facility] [Outside] Disposition: HOME/ ROUTINE Disposition Time: 03:21 Condition: GOOD Additional Instructions: continue outpatient f/u for anxiety/panic as required Instructions: Panic Disorder Forms: [employer] (Telugu) - Clinical Impression Clinical Impression: Panic attack, Contusion of ankle, left - Scribe Statement The provider has reviewed the documentation as recorded by the Scribe (Dedra Odell) Provider Attestation: All medical record entries made by the Scribe were at my direction and personally dictated by me. I have reviewed the chart and agree that the record accurately reflects my personal performance of the history, physical exam, medical decision making, and the department course for this patient. I have also personally directed, reviewed, and agree with the discharge instructions and disposition.
== END 2018-08-09 03:30 | disposition home or self-care (01) ==
LOC: C.ER 02:54
DX: F41.0 Panic disorder [episodic paroxysmal anxiety] (principal); S90.02XA Contusion of left ankle, initial encounter; X58.XXXA Exposure to other specified factors, initial encounter